=== PATIENT | male | born 1980 | race Hispanic/Latino ===

== ENCOUNTER → 2019-07-15 | Outpatient (CLI) | payer BC | END | disposition home or self-care (01) | LOC: OIH 13:35 | PROVIDERS: ATTEND Internal Medicine | DX: M19.042 Primary osteoarthritis, left hand (principal); M19.041 Primary osteoarthritis, right hand; M19.071 Primary osteoarthritis, right ankle and foot; M20.12 Hallux valgus (acquired), left foot; M20.11 Hallux valgus (acquired), right foot; M06.4 Inflammatory polyarthropathy | CPT/HCPCS: 72040; 72100; 72202; 73620 ==